=== PATIENT | female | born 2000 | race Caucasian/White ===

== ENCOUNTER 2018-08-02 19:32 | Observation (INO) ==
[2018-08-02] MEDS ORDERED: Sodium Chloride 0.9% 1,000 ML PRIMARY IV ONE (20:25)
--- NOTE | 2018-08-02 20:46 | EKG ---
Measurements Intervals [place] Rate: 86 P: 9 CA: 158 QRS: 12 QRSD: 75 T: -25 QT: 365 QTc: 409 Interpretive Statements SINUS RHYTHM WITH SINUS ARRHYTHMIA POSSIBLE ANTERIOR MYOCARDIAL INFARCTION [30 ms Q WAVE IN V3/V4, OR R < 0.2 mV IN V4], OF INDETERMINATE AGE No previous ECG available for comparison Electronically Signed On 08-03-18 08:48:40 MDT by Von Gutiérrez MD [id number]
[2018-08-02 20:59] LABS: BASOPHILS # (AUTO) 0.08 10*3/UL; BASOPHILS % (AUTO) 1.2 % (0-1); EOSINOPHILS # (AUTO) 0.09 10*3/UL; EOSINOPHILS % (AUTO) 1.4 % (0-8); Hematocrit [HCT] 47.4 % (37.0-47.0); Hemoglobin [HGB] 16.3 g/dL (12.0-16.0); LYMPHOCYTES # (AUTO) 2.06 10*3/uL; MEAN CORPUSCULAR HEMOGLOBIN 31.6 PG (27-31); MEAN CORPUSCULAR HGB CONC 34.4 g/dL (33-37); MEAN CORPUSCULAR VOLUME 91.9 FL (81-99); MEAN PLATELET VOLUME 9.4 FL (7.4-12.2); MONOCYTES # (AUTO) 0.44 10*3/UL (0.3-0.8); MONOCYTES % (AUTO) 6.8 % (5-15); NEUTROPHILS # (AUTO) 3.79 10*3/UL; NEUTROPHILS % (AUTO) 58.6 % (50-80); RED BLOOD COUNT 5.16 10^6/uL (4.20-5.40)
[2018-08-02 21:01] LABS: PLATELET MORPHOLOGY COMMENT NORMAL MORPHOLOGY (NORM); RBC MORPHOLOGY COMMENT NORMAL MORPHOLOGY (NORM); WBC MORPHOLOGY COMMENT NORMAL MORPHOLOGY (NORM)
[2018-08-02 21:09] LABS: BLOOD UREA NITROGEN 9 mg/dL (7-22); SERUM ALBUMIN 4.5 g/dL (3.5-4.8)
--- NOTE | 2018-08-02 22:01 | DI ---
EXAM: CT Head Without Intravenous Contrast CLINICAL HISTORY: ITS.REASON TIA symotoms, right side of body Physician Notes: Tech Comments: TECHNIQUE: Axial computed tomography images of the head/brain without intravenous contrast. COMPARISON: No relevant prior studies available. FINDINGS: Brain: Unremarkable. No hemorrhage. No significant white matter disease. No edema. Ventricles: Unremarkable. No ventriculomegaly. Bones/joints: Unremarkable. No acute fracture. Soft tissues: Unremarkable. Sinuses: Unremarkable as visualized. No acute sinusitis. Mastoid air cells: Unremarkable as visualized. No mastoid effusion. IMPRESSION: Unremarkable head/brain CT.
[2018-08-02] MEDS ORDERED: Influenza 18-19 Vaccine (6mo+) 60 MCG/0.5 ML SYRINGE IM ONE (23:07)
[2018-08-02] MEDS ORDERED: DOCUSATE 100 MG CAPSULE PO PRN (23:42)
[2018-08-02] MEDS ORDERED: CALCIUM CARBONATE 500 MG (TUMS) CHEWABLE TABLET PO PRN (23:42)
[2018-08-02] MEDS ORDERED: LIDOCAINE W/ SODIUM BICARB 0.5 ML SYR SUBD PRN (23:42)
[2018-08-02] MEDS ORDERED: ACETAMINOPHEN 325 MG TABLET PO PRN (23:42)
[2018-08-02] MEDS ORDERED: ONDANSETRON 4 MG/2 ML VIAL IVP PRN (23:42)
--- NOTE | 2018-08-02 23:53 | PDOC ---
HPI - History of Present Illness Date of Service: 08/03/18 Time of Service: 23:15 Chief Complaint: Transient weakness, transient period of not moving the right arm. History of Present Illness: This is a 18 years old female with medical history significant for history of Down's syndrome, hypothyroidism on replacement who was brought to the hospital by mother for evaluation. Mother said that she was sitting on a chair near the dining table and then she slumped towards the right side and she was drooling from the right side . The mother said she went and held her for 15 minutes and then she recovered from that. She did not notice any spasticity or clonic activity or twitching. She said her eyes were were open. Then after that she have another episode with the same response. Because of that they brought her to the ER. The patient never had this thing happened to her before. There was no nausea or vomiting. There was no incontinence of bowel or bladder. When the second attack happened the carried her to the car as she was not able to walk but then she was able to walk into the ER. The patient herself doesn't say much on just few words. History is obtained from the patient's mother. The mother did say that the patient had some headache with the first episode. Past Medical History Medical History: 1. Down syndrome. 2. Hypothyroidism on replacement for 2 years Surgical History: No surgeries Family History: Reviewed an Not Pertinent Past Social History: Patient has Down syndrome, usually doesn't say much. Does not smoke or drink or do drugs. Tobacco Use: Never Smoker In the Past 12 Months, Have Used or Abuse Any of the Following Substance: None Alcohol Use: None Medication / Allergies Home Medications: Home Medications 3 Medication Instructions Recorded Confirmed Type Ibuprofen [Motrin] 1 tab PO Q8H #90 tab 09/09/14 08/02/18 History Levothyroxine Sodium [Synthroid] 100 mcg PO DAILY 08/02/18 08/02/18 History Allergies/Adverse Reactions: Allergies 3 Allergy/AdvReac Type Severity Reaction Status Date / Time No Known Allergies Allergy Verified 08/02/18 20:00 Review of Systems - Review of Systems All Systems: Reviewed & No Additional Complaints Except as Stated Exam - Vitals Vital Signs: Vital Signs Temperature 97 F Temperature Source Temporal Artery Scan Pulse Rate [Pulse Oximeter] 95 Respiratory Rate 20 Blood Pressure [Left Arm] 126/78 Blood Pressure [Right Arm] 135/99 Pulse Ox 97 Oxygen Delivery Method Room Air Height 4 ft 10 in Weight 188 lb 6.4 oz - General General Appearance: No Acute Distress, Cooperative, Obese Additional General Exam Details: Patient has Down syndrome features - Head Head Exam: Normal Inspection - Eye Eye Exam: POSITIVE: Normal Appearance - ENT ENT Exam: POSITIVE: Normal Exam - Neck Neck Exam: Normal Inspection - Respiratory Respiratory Exam: POSITIVE: Clear to Auscultation - Bilaterally - Cardiovascular Cardiovascular Exam: POSITIVE: RRR - GI/Abdominal GI/Abdominal Exam: POSITIVE: Normal Bowel Sounds, Non Tender, Non Distended, Soft, No Organomegaly - Rectal Rectal Exam: POSITIVE: Deferred - External Exam: POSITIVE: Deferred - Extremities Extremities Exam: POSITIVE: Normal Inspection - Back Back Exam: POSITIVE: Normal Inspection - Neurological Neurological Exam: POSITIVE: Alert, Oriented x 3, CN II-XII Intact, No Facial Droop, Moves All Extremities Equally Additional Neurological Exam Details: She was laying in bed doesn't appear in distress. She follows command. I don' t see a focal finding on exam. She doesn't say much except sometimes she looks at her mom and says mommy. - Psychiatric Psychiatric Exam: POSITIVE: Normal Affect - Integumentary Integumentary Exam: POSITIVE: Normal Color Results - Labs CBC and BMP: 08/02/18 20:56 08/02/18 20:56 - Imaging Status: Report Reviewed by Me (CT head Unremarkable head/brain CT.) Assessment and Plan - Patient Problems (1) Weakness Current Visit: Yes Status: Acute Comment: Based on the description the patient seemed that she was leaning towards the right side and not moving the right arm, that was on for 15 minutes or so. Question of possible seizure. I think will order an MRI of her brain. We'll give a dose of Keppra and will speak with neurology once we have the MRI result and see their opinion. She may need follow-up with them to have an EEG done. Meanwhile we'll put her on telemetry. Code(s): R53.1 - Weakness (2) Hypothyroidism Current Visit: Yes Status: Acute Comment: Continue same medications Code(s): E03.9 - Hypothyroidism, unspecified Qualifiers: Hypothyroidism type: due to non-medication exogenous substances Qualified Code(s): E03.2 - Hypothyroidism due to medicaments and other exogenous substances
--- NOTE | 2018-08-03 04:30 | PDOC ---
Neuro Symptoms / Deficit HPI - General Chief Complaint: Headache Stated Complaint: INTERMITTENT RIGHT SIDED JEAN WITH WEAKNESS Date Seen by Provider: 08/02/18 Time Seen by Provider: 19:50 Source: POSITIVE: Patient, Other (Mother and father) Exam Limitations: POSITIVE: No limitations Nurse's Notes Reviewed & Considered: Yes - History of Present Illness Initial Comments: The patient is a 18-year-old female who was brought into the emergency room by her mother and father. Patient has a history of Down's syndrome and lives with her parents. Mother reports that around 1845 the patient was sitting in a chair and began to complain of an abrupt onset of right temporal headache and the mother states that she then "slump down on her right side in her chair. Mother reports that the patient was noted to be "trembling "out of the right side of her mouth. These symptoms lasted 10-15 minutes. Then about 30 minutes later this evening the patient was eating supper and mother reports that the patient had a similar episode, but this time the mother states that she was weak in her right arm and her right leg and was not able to walk. These symptoms all resolved after 15-20 minutes. Patient has a history of hypothyroidism for which she takes levo thyroxine. Mother states that the child had no loss of consciousness and remained alert and oriented throughout both of these spells. There was no tonic-clonic or other seizure-type activity. The patient has not had any fevers, chills, GI or symptoms are expiratory symptoms. She's not had any similar episodes in the past. Body Location Affected: REPORTS: Head, Upper Extremity (R), Lower Extremity (R) Timing: REPORTS: Abrupt (As above), Intermittent (2 episodes) Duration: Other (Mother reports her episodes lasted 10-20 minutes) Severity: Moderate Quality: REPORTS: "Pain" (Mother reports abrupt onset of right temporal headache , now resolved) Character of Deficit(s): REPORTS: Right, RUE, RLE, Weak (Transient weakness) Associated Symptoms: REPORTS: Headache (Transient; no headache upon presentation to the emergency room). DENIES: Fever, Chills, Sweating, Chest Pain, Neck Pain, Back Pain, Fainting, Seizure, Altered Mental Status, Disoriented, Confused, Agitated, Trouble Concentrating, Trouble Thinking, Decreased Responsiveness, Unresponsive, Other Usual Ability to Walk/Stand: REPORTS: Walks w/o Assistance Usual Cognition: REPORTS: Alert & Oriented x3 Similar Symptoms Previously: No Recently seen/treated/hospitalized: No Any Prior Injuries Related to Current Complaint?: No - Patient Home Medications Home Medications: Home Medications Ibuprofen [Motrin] 1 tab PO Q8H #90 tab 09/09/14 Levothyroxine Sodium [Synthroid] 100 mcg PO DAILY 08/02/18 - Patient Allergies Allergies/Adverse Reactions: Allergies 3 Allergy/AdvReac Type Severity Reaction Status Date / Time No Known Allergies Allergy Verified 08/02/18 20:00 Past Medical History - heen HEENT History: Denies History Cardiovascular History: Denies History Respiratory History: Denies History Gastrointestinal History: Denies History Genitourinary History: Denies History Endocrine History: Hypothyroidism Musculoskeletal History: Denies History Neurological History: Other (please comment) Additional Neurological History: DOWN SYNDROME Blood Disorders: Denies History Psychiatric History: Denies History History of Sexually Transmitted Diseases: No Female Reproductive History: Denies History Obstetrical History: Denies History Cancer History: Denies History In Past Year Been Physically Harmed or Verbally Threatened: No History of MDRO: No History of Other Communicable Diseases: No Tobacco Use: Never Smoker Alcohol Use: None In the Past 12 Months, Have Used or Abuse Any Substance: None Previous Surgical History: Yes Type / Date of Surgery: TUBES IN EARS, DENTAL Significant Family History: No pertinent family hx Past Medical History Reviewed: Reviewed - No Changes ROS - Limitations ROS Limitations: No Limitations Constitution: REPORTS: Denies Symptoms Cardiovascular: REPORTS: Denies Cardiac Symptoms Respiratory: REPORTS: Denies Resp Symptoms Neurological: REPORTS: Headache (Intermittent 2, as above), Weakness (Weakness , transient, right upper and lower extremities, as above) Gastrointestinal: REPORTS: Denies GI Symptoms Endocrine: REPORTS: Denies Symptoms Musculoskeletal: REPORTS: Denies MS Symptoms Genitourinary: REPORTS: Denies Symptoms Eyes: REPORTS: Denies Symptoms ENT: REPORTS: Denies Symptoms Skin: REPORTS: Denies Skin Symptoms Lympathic: REPORTS: Denies Lympathic Symptoms Immunologic: POSITIVE: Denies Symptoms Psychiatric: POSITIVE: Denies Psych Symptoms Neuro Symptoms / Deficit Exam - General Appearance General Appearance: POSITIVE: No Acute Distress, Alert - HEENT HEENT: POSITIVE: Head Inspection Nml, Eyes Inspection Nml, Ears Inspection Nml, Nose Inspection Nml, Oral/Dental Inspect. Nml, Pharynx Inspect. Nml, PERRL, EOMI - Pupil Size Pupil Size: 3 mm: Bilateral (PERRLA) - Neuro / Psych Higher Functions: POSITIVE: Oriented to Person, Oriented to Place, Oriented to Time, Normal Speech (Patient has a restricted vocabulary), Normal Cognition, Appropriate Mood, Appropriate Affect. NEGATIVE: Disoriented to Person, Disoriented to Place, Disoriented to Time, Speech Abnormalities, Cognition Abnormalities, Depressed Mood, Depressed Affect, Abnml Response to Command, No Response to Command, Eyes Open to Command, Slow Response to Command, Inapp Response to Command, Expressive Aphasia, Receptive Aphasia, Abnml Response to Pain, Withdraws to Pain, Flexor to Pain, Extensor to Pain, No Response to Pain, Dysarthria, Other Cranial Nerves: POSITIVE: Normal As Tested, No Evidence of Acute CVA Cerebellar: POSITIVE: Normal As Tested Peripheral Exam: POSITIVE: Sensation Normal, Motor Normal (Patient presently shows no motor weakness. No pronator drift. Cranial nerves all intact.), Reflexes Normal Reflexes: Patellar (L): 2+, Radial (R): 2+ - Neck Neck: POSITIVE: Supple, Non-Tender, No Carotid Bruit - Respiratory Respiratory: POSITIVE: No Respiratory Distress, Breath Sounds Normal - Cardiovascular Cardiovascular: POSITIVE: Regular Rate & Rhythm, Heart Sounds Normal Peripheral Pulses: Radial (R): 2+, Radial (L): 2+ - Abdomen Abdomen: Soft: (All Quadrants), Normal Bowel Sounds: (All Quadrants), Denies Tenderness: (All Quadrants), No Splenomegaly: (All Quadrants), No Hepatomegaly: (All Quadrants), No Guarding: (All Quadrants), No Rebound: (All Quadrants), No Palpable Pulse: (All Quadrants), No [place] Mass: (All Quadrants), No Distention: (All Quadrants), No Rigidity: (All Quadrants) - Skin Skin: POSITIVE: Intact, Normal For Race, Warm, Dry, No Rash - Extremities Extremity: Non-Tender: (All Extremities), Normal ROM: (All Extremities), Normal Inspection: (All Extremities) Neuro Symptom/Deficit Progress - Results Reviewed by me Xrays/CTs/US Reviewed by me: Yes Discussed with Radiologist: Yes (CT head without contrast normal) Lab Results Reviewed by Me: Yes CBC and BMP: 08/02/18 20:56 08/02/18 20:56 Lab Results:: Laboratory Results 3 08/02/18 08/02/18 08/02/18 20:56 20:56 20:56 WBC 6.47 RBC 5.16 Hgb 16.3 H Hct 47.4 H MCV 91.9 MCH 31.6 H MCHC 34.4 RDW Std Deviation 43.8 RDW Coeff of Norberto 13.1 Plt Count 305 MPV 9.4 Immature Gran % (Auto) 0.2 Neut % (Auto) 58.6 Lymph % (Auto) 31.8 [place] % (Auto) 6.8 Eos % (Auto) 1.4 Baso % (Auto) 1.2 H Immature Gran # (Auto) 0.01 Neut # (Auto) 3.79 Lymph # (Auto) 2.06 [place] # (Auto) 0.44 Eos # (Auto) 0.09 Baso # (Auto) 0.08 WBC Morphology Comment Normal morphology Plt Morphology Comment Normal morphology RBC Morph Comment Normal morphology D-Dimer Sodium 139 Potassium 3.8 Chloride 103 Carbon Dioxide 27 Anion Gap 9 BUN 9 Creatinine 0.9 Estimated GFR > 60 BUN/Creatinine Ratio 10.00 Glucose 126 H Calculated Osmolality 288.0 Calcium 9.4 Total Bilirubin 0.3 AST 23 ALT 36 Alkaline Phosphatase 96 Total Protein 8.8 H Albumin 4.5 Globulin 4.3 H Albumin/Globulin Ratio 1.00 L Serum HCG, Qual Negative 3 08/02/18 20:56 WBC RBC Hgb Hct MCV MCH MCHC RDW Std Deviation RDW Coeff of Norberto Plt Count MPV Immature Gran % (Auto) Neut % (Auto) Lymph % (Auto) [place] % (Auto) Eos % (Auto) Baso % (Auto) Immature Gran # (Auto) Neut # (Auto) Lymph # (Auto) [place] # (Auto) Eos # (Auto) Baso # (Auto) WBC Morphology Comment Plt Morphology Comment RBC Morph Comment D-Dimer 0.70 H Sodium Potassium Chloride Carbon Dioxide Anion Gap BUN Creatinine Estimated GFR BUN/Creatinine Ratio Glucose Calculated Osmolality Calcium Total Bilirubin AST ALT Alkaline Phosphatase Total Protein Albumin Globulin Albumin/Globulin Ratio Serum HCG, Qual EKG Interpreted/Reviewed By Me:: Yes EKG Interpretation:: POSITIVE: Normal Sinus Rhythm, Normal Rate, Normal Intervals, Normal [place], Normal QRS, Normal ST/T - Patient's Progress Pain Medication Addressed: POSITIVE: Not Applicable School/Work Release Addressed: POSITIVE: Not Applicable Re-Examine Time:: 22:25 Re-Examine Comment: Patient remained asymptomatic throughout her stay in the emergency room. Visiting with her mother and father. Patient is admitted by hospitalist for observation and further evaluation as necessary; MRI scanning. Status: POSITIVE: Unchanged Antibiotics Given: No CVA/Syncope Quality Measure Initiative: POSITIVE: EKG - Consult Consult (If Yes, Name of Consulting MD & Time Called): Yes (Dr. Toussaint, [id number]) Consulting MD will see pt:: POSITIVE: [facility] [place] Admit Counseled: POSITIVE: Patient, Family, RE: Lab Results, RE: Radiology Results, RE : DX, RE: Need for F/U Patient Care Time - Estimated PCT Patient Care Time (In Minutes): 50 Vital Signs - Recent Vital Signs Vital Signs: Vital Signs (Last 8 hours) Temp Pulse Pulse Resp BP BP Pulse Ox 08/03/18 03:00 99 08/02/18 23:36 99 08/02/18 23:06 97 F 95 20 126/78 97 08/02/18 22:54 97.2 F 98 18 128/84 95 - VS Reviewed Vital Signs Reviewed: Yes Discharge Clinical Impression: Transient ischemic attack Discharge Disposition: Admit to Inpatient Condition: Stable Date Decision to Admit to Inpatient: 08/02/18 Time Decision to Admit to Inpatient: 22:20
[2018-08-03 04:33] VITALS: O2SAT 96
[2018-08-03] MEDS ORDERED: LEVOTHYROXINE 100 MCG TABLET PO SCH ×2 (05:30→19:00)
--- NOTE | 2018-08-03 08:19 | DI ---
CT ANGIOGRAM OF THE CHEST, 08/03/2018 12:28 AM : Clinical History: Elevated D-dimer test. Transient unresponsiveness. Previous Exam: None at this facility. Scans are performed from the base of the neck to the lower lung bases with IV contrast. 52 mL of [place] ue 370 was injected IV. Proprietary automated bolus tracking software was used to verify the timing o f the injection. The base of the neck and thoracic inlet are normal. There are no abnormal axillary, supraclavicular, mediastinal, or hilar nodes. The heart is normal. The pulmonary arteries are normal. There is no pulm onary arterial hypertension. There is no evidence of pulmonary embolism or pulmonary infarction. The lungs are clear and there are no pulmonary nodules or masses. Both adrenal glands, the spleen, and th e visualized portions of the pancreas are normal. There is mild to moderate hepatomegaly with diffuse fatty infiltration. READIN. Normal CTA of the chest. There are no pulmonary emboli or pulmonary infarcts. 2. Mild to moderate hepatomegaly with diffuse fatty infiltration.
[2018-08-03 08:37] VITALS: BP 126/75; RESP 20; TEMP 97.2
--- NOTE | 2018-08-03 12:21 | DI ---
MRI BRAIN SCAN WITHOUT IV CONTRAST, 08/03/2018 7:00 AM: Clinical History: Transient unresponsiveness. Previous Exam: None at this facility. Sequences: Sagittal T1; Axial DINH T2 and FLAIR. Axial diffusion weighted images with ADC mapping were also performed. The patient was moving during the entire exam. The 4th, 3rd, and lateral ventricles are of normal siz e, shape, position, and contour for this patient's age. There are no focal areas of abnormally increa sed or decreased signal intensity. Diffusion weighted imaging with ADC mapping is normal. There are n o extracerebral mantels or shift of the midline structures. The paranasal sinuses are normal. Readin. Motion artifacts are present on all sequences. The patient was moving during the entire exam. 2. Normal noncontrast MRI brain scan. 3. Diffusion weighted imaging with ADC mapping is normal.
--- NOTE | 2018-08-03 12:48 | DCSUMMARY ---
Hospitalization Summary Admit Date: 08/02/2018 Discharge Date: 08/03/18 Hospital Course: Discharge diagnoses 1. Episodes of transient weakness predominantly right-sided, question of seizure 2. Hypothyroidism 3. Down syndrome 4. Mild to moderate hepatomegaly with fatty infiltration Hospital course This is a 18 years old the female with medical history significant for history of Down's syndrome, hypothyroidism on replacement who was brought by the mother for evaluation. Mother said that the patient was sitting on a chair near the dining Table and then she slumped towards the right side and she was drooling from the right corner of her mouth. Mother said she went and held the patient for 15 minutes and then she recovered from that. She did not notice spasticity or clonic activity or twitching. She said her eyes were open. The patient because of her Down syndrome already has communication issues she usually doesn' t say much. She had another episode of the same thing this time the mother carried her to the car as she wasn't able to walk. by the time they brought her to the ER she was able to walk to the ER. Evaluation in the ER was unremarkable a CT of the head was negative. Lab did show slight elevation of d- dimer 0.7 and CTA of the chest was negative for PE. Her exam when I saw her apart from the features of Down's syndrome was unremarkable there was no focal weakness. The next day she had an MRI done which was negative. The explanation for her symptoms isn't clear. Because this may be a seizure. We did give her Keppra. There was no recurrence of her symptoms while she was here in the hospital. Her heart rhythm was sinus. I did speak with neurologist in [place] he agreed with continuation of the Keppra. He Will see her as an outpatient, he wants an EEG done before. Her exam the next day was unremarkable. We thought she could be discharged home to continue on the Keppra and follow-up with neurology and her PCP. Discharge instruction Diet regular Activity as tolerated Medications Laboratory Results 08/02/18 08/02/18 08/02/18 Range/Units 20:56 20:56 20:56 WBC 6.47 (4.8-10.8) 10^3/uL RBC 5.16 (4.20-5.40) 10^6/uL Hgb 16.3 H (12.0-16.0) g/dL Hct 47.4 H (37.0-47.0) % MCV 91.9 (81-99) FL MCH 31.6 H (27-31) PG MCHC 34.4 (33-37) g/dL RDW Std Deviation 43.8 (39-50) fL RDW Coeff of Norberto 13.1 (11.5-14.5) % Plt Count 305 (140-350) 10*3/uL MPV 9.4 (7.4-12.2) FL Immature Gran % (Auto) 0.2 (0-5) % Neut % (Auto) 58.6 (50-80) % Lymph % (Auto) 31.8 (10-50) % [place] % (Auto) 6.8 (5-15) % Eos % (Auto) 1.4 (0-8) % Baso % (Auto) 1.2 H (0-1) % Immature Gran # (Auto) 0.01 10*3/UL Neut # (Auto) 3.79 10*3/UL Lymph # (Auto) 2.06 10*3/uL [place] # (Auto) 0.44 (0.3-0.8) 10*3/UL Eos # (Auto) 0.09 10*3/UL Baso # (Auto) 0.08 10*3/UL WBC Morphology Comment Normal morphology (NORM) Plt Morphology Comment Normal morphology (NORM) RBC Morph Comment Normal morphology (NORM) D-Dimer (0.00-0.59) mg/L Sodium 139 (135-145) meq/L Potassium 3.8 (3.8-5.2) meq/L Chloride 103 (98-112) meq/L Carbon Dioxide 27 (23-33) meq/L Anion Gap 9 (5-20) BUN 9 (7-22) mg/dL Creatinine 0.9 (0.50-1.20) mg/dL Estimated GFR > 60 (>60 ml/min/1.73m(2)) BUN/Creatinine Ratio 10.00 (6-20) Glucose 126 H (78-110) mg/dL Calculated Osmolality 288.0 (267-292) mOsm/kg Calcium 9.4 (8.7-10.7) mg/dL Total Bilirubin 0.3 (0.3-1.2) mg/dL AST 23 (8-39) IU/L ALT 36 (9-52) IU/L Alkaline Phosphatase 96 (38-126) IU/L Total Protein 8.8 H (6.1-8.0) g/dL Albumin 4.5 (3.5-4.8) g/dL Globulin 4.3 H (2.50-4.10) g/dL Albumin/Globulin Ratio 1.00 L (1.3-2.0) mg/g Serum HCG, Qual Negative 08/02/18 Range/Units 20:56 WBC (4.8-10.8) 10^3/uL RBC (4.20-5.40) 10^6/uL Hgb (12.0-16.0) g/dL Hct (37.0-47.0) % MCV (81-99) FL MCH (27-31) PG MCHC (33-37) g/dL RDW Std Deviation (39-50) fL RDW Coeff of Norberto (11.5-14.5) % Plt Count (140-350) 10*3/uL MPV (7.4-12.2) FL Immature Gran % (Auto) (0-5) % Neut % (Auto) (50-80) % Lymph % (Auto) (10-50) % [place] % (Auto) (5-15) % Eos % (Auto) (0-8) % Baso % (Auto) (0-1) % Immature Gran # (Auto) 10*3/UL Neut # (Auto) 10*3/UL Lymph # (Auto) 10*3/uL [place] # (Auto) (0.3-0.8) 10*3/UL Eos # (Auto) 10*3/UL Baso # (Auto) 10*3/UL WBC Morphology Comment (NORM) Plt Morphology Comment (NORM) RBC Morph Comment (NORM) D-Dimer 0.70 H (0.00-0.59) mg/L Sodium (135-145) meq/L Potassium (3.8-5.2) meq/L Chloride (98-112) meq/L Carbon Dioxide (23-33) meq/L Anion Gap (5-20) BUN (7-22) mg/dL Creatinine (0.50-1.20) mg/dL Estimated GFR (>60 ml/min/1.73m(2)) BUN/Creatinine Ratio (6-20) Glucose (78-110) mg/dL Calculated Osmolality (267-292) mOsm/kg Calcium (8.7-10.7) mg/dL Total Bilirubin (0.3-1.2) mg/dL AST (8-39) IU/L ALT (9-52) IU/L Alkaline Phosphatase (38-126) IU/L Total Protein (6.1-8.0) g/dL Albumin (3.5-4.8) g/dL Globulin (2.50-4.10) g/dL Albumin/Globulin Ratio (1.3-2.0) mg/g Serum HCG, Qual Follow-up with PCP in 1-2 weeks, follow-up with neurology 1-2 weeks Condition at discharge was stable for discharge Exam - Vitals Vital Signs: Vital Signs Temperature 97.2 F Temperature Source Temporal Artery Scan Pulse Rate [Pulse Oximeter] 96 Pulse Rate 99 Respiratory Rate 20 Blood Pressure [Left Arm] 126/75 Blood Pressure [Right Arm] 135/99 Blood Pressure 128/84 Pulse Ox 96 Oxygen Delivery Method Room Air Height 4 ft 10 in Weight 188 lb 6.4 oz - General General Appearance: No Acute Distress, Cooperative Additional General Exam Details: Features of Down syndrome noted - Eye Eye Exam: POSITIVE: Normal Appearance - ENT ENT Exam: POSITIVE: Normal Exam - Neck Neck Exam: Normal Inspection - Respiratory Respiratory Exam: POSITIVE: Clear to Auscultation - Bilaterally - Cardiovascular Cardiovascular Exam: POSITIVE: RRR - GI/Abdominal GI/Abdominal Exam: POSITIVE: Normal Bowel Sounds, Non Tender, Non Distended, Soft, No Organomegaly - Rectal Rectal Exam: POSITIVE: Deferred - External Exam: POSITIVE: Deferred Exam: POSITIVE: Deferred - Extremities Extremities Exam: POSITIVE: Normal Inspection - Back Back Exam: POSITIVE: Normal Inspection - Neurological Neurological Exam: POSITIVE: Alert, Normal Gait, CN II-XII Intact, No Facial Droop, Moves All Extremities Equally - Psychiatric Psychiatric Exam: POSITIVE: Normal Affect - Integumentary Integumentary Exam: POSITIVE: Normal Color Patient Problems - Patient Problem List (1) Weakness Status: Acute Code(s): R53.1 - Weakness Category: Medical (2) Hypothyroidism Status: Acute Code(s): E03.9 - Hypothyroidism, unspecified Qualifiers: Hypothyroidism type: due to non-medication exogenous substances Qualified Code(s): E03.2 - Hypothyroidism due to medicaments and other exogenous substances Category: Medical
== END 2018-08-03 13:31 | disposition home or self-care (01) ==
LOC: ER 19:32 → MED/SURG 19:32
PROVIDERS: ADMIT Internal Medicine; ATTEND Internal Medicine